=== PATIENT | male | born 1940 | race Asian ===

== ENCOUNTER 2019-10-09 07:06 | Inpatient (IN) | payer OTHER ==
[~2019-10-09] VITALS: Ht 154.9 cm; Wt 61.8 kg
[2019-10-09 07:16] LABS: EOSINOPHILS % (AUTO) 3.4 % (1.0-6.0); HEMOGLOBIN 13.4 g/dL (13.5-17.5); LYMPHOCYTES # (AUTO) 0.8 K/uL (1.0-4.8); LYMPHOCYTES % (AUTO) 13.2 % (22.0-44.0); MEAN CORPUSCULAR HEMOGLOBIN 32.7 pg (26.0-34.0); MEAN CORPUSCULAR HGB CONC 33.4 G/dL (31.0-37.0); MEAN CORPUSCULAR VOLUME 98 fL (80-100); MONOCYTES # (AUTO) 0.8 K/uL (0.1-1.0); MONOCYTES % (AUTO) 12.7 % (2.0-9.0); NEUTROPHILS # (AUTO) 4.2 K/uL (1.8-7.7); NEUTROPHILS % (AUTO) 69.7 % (40.0-70.0); RED BLOOD CELL COUNT(AUTO) 4.09 MIL/uL (4.50-5.90)
[2019-10-09 07:27] LABS: CALCIUM, TOTAL 8.8 mg/dL (8.8-10.5); CREATININE 1.79 mg/dL (0.60-1.30); POTASSIUM 4.5 mmol/L (3.5-5.1); PROTHROMBIN TIME 10.5 SEC (9.4-11.6)
[2019-10-09 07:30] LABS: PLATELET COUNT (AUTO) 98 K/uL (150-450)
[2019-10-09 07:33] LABS: BILIRUBIN,TOTAL 0.7 mg/dL (0.1-1.0); TOTAL PROTEIN, SERUM 6.6 g/dL (6.4-8.2)
[2019-10-09] MEDS ORDERED: CHOL100018 PO (07:54)
[2019-10-09] MEDS ORDERED: HYDR25TA84 PO (07:54)
[2019-10-09] MEDS ORDERED: DOXA1 PO (07:54)
[2019-10-09] MEDS ORDERED: INSLAN SQ (07:54)
[2019-10-09] MEDS ORDERED: ACAR50TA2 PO (07:54)
[2019-10-09] MEDS ORDERED: SITA50 PO (07:54)
[2019-10-09] MEDS ORDERED: SPIR25 PO (07:54)
[2019-10-09] MEDS ORDERED: LABE100T8 PO (07:54)
[2019-10-09] MEDS ORDERED: GLIP5 PO (07:54)
[2019-10-09] MEDS ORDERED: FLUT16H NASAL (07:54)
[2019-10-09] MEDS ORDERED: OLOP5DRO14 OU (07:54)
[2019-10-09] MEDS ORDERED: LOSA50TA64 PO (07:54)
[2019-10-09] MEDS ORDERED: ASPIRIN 81 MG CHEWABLE TABLET PO ONE (08:30)
[2019-10-09] MEDS ORDERED: ONDANSETRON HCL 4 MG/2 ML VIAL IVP PRN ×2 (08:45→16:30)
[2019-10-09] MEDS ORDERED: ACETAMINOPHEN 325 MG TABLET PO PRN ×2 (08:45→16:30)
[2019-10-09] MEDS ORDERED: MAGNESIUM HYDROXIDE SUSPENSION 30 ML UDCUP PO PRN (16:30)
[2019-10-09] MEDS ORDERED: BISACODYL 10 MG RECTAL RECTAL SUPPOSITORY PR PRN (16:30)
[2019-10-09] MEDS ORDERED: MORPHINE SULFATE 2 MG/ML SYRINGE IVP PRN (16:30)
[2019-10-09] MEDS ORDERED: ZOLPIDEM TARTRATE 5 MG TABLET PO PRN (16:30)
[2019-10-09] MEDS ORDERED: HYDROCODONE/ACETAMINOPHEN 5-325 MG TABLET PO PRN (16:30)
[2019-10-09 16:56] VITALS: BP 160/71
[2019-10-09] MEDS: GlipiZIDE 5 MG TABLET PO SCH (17:46)
[2019-10-09] MEDS: DOCUSATE SODIUM 100 MG CAPSULE PO SCH (20:03)
[2019-10-09 20:08] VITALS: BP 144/96
[2019-10-09] MEDS ORDERED: ATORVASTATIN CALCIUM 20 MG TABLET PO SCH (21:00)
[2019-10-10 00:16] VITALS: BP 158/76
[2019-10-10] MEDS: HEPARIN SODIUM,PORCINE 5,000 UNITS/ML VIAL SQ SCH ×3 (01:08→16:38)
[2019-10-10 04:24] VITALS: BP 150/99
[2019-10-10] MEDS: GlipiZIDE 5 MG TABLET PO SCH ×2 (06:26→16:38)
[2019-10-10 06:42] LABS: HEMOGLOBIN A1C 6.4 % (4.5-6.2)
[2019-10-10 07:02] LABS: CHOL/HDL RATIO 5.6 (4.2-7.3); THYROID STIMULATING HORMONE 0.3 uIU/mL (0.36-3.74)
[2019-10-10 07:26] VITALS: BP 148/67
[2019-10-10] MEDS: DOCUSATE SODIUM 100 MG CAPSULE PO SCH (08:50)
[2019-10-10] MEDS ORDERED: PANTOPRAZOLE SODIUM 40 MG DR TABLET PO SCH (09:00)
[2019-10-10] MEDS ORDERED: ASPIRIN 81 MG CHEWABLE TABLET PO SCH ×2 (09:00)
[2019-10-10] MEDS ORDERED: LOSARTAN POTASSIUM 25 MG TABLET PO SCH (09:00)
[2019-10-10] MEDS ORDERED: SPIRONOLACTONE 25 MG TABLET PO SCH (09:00)
[2019-10-10] MEDS ORDERED: SitaGLIPtin PHOSPHATE 50 MG TABLET PO SCH (09:00)
[2019-10-10] MEDS ORDERED: DEXTROSE 50%-WATER 25 GM/50 ML SYRINGE IVP PRN (09:00)
[2019-10-10] MEDS ORDERED: INSULIN LISPRO 100 UNITS/ML SQ PRN (09:00)
[2019-10-10] MEDS ORDERED: CHOLECALCIFEROL (VIT D3) 1,000 UNITS TABLET PO SCH (09:00)
[2019-10-10 09:46] LABS: FREE T4 (FREE THYROXINE) 1.34 ng/dL (0.76-1.46)
[2019-10-10 11:09] VITALS: BP 156/64
[2019-10-10] MEDS ORDERED: ASPI81 PO (18:58)
[2019-10-10] MEDS ORDERED: ATOR20TA86 PO (18:59)
[2019-10-10 20:54] LABS: GLUCOMETER DEV NAME(LOC) 5N.2; GLUCOSE,POINT OF CARE 224 MG/DL (70-110)
[2019-10-10 20:55] LABS: GLUCOMETER DEV NAME(LOC) 5N.2; GLUCOSE,POINT OF CARE 98 MG/DL (70-110)
== END 2019-10-10 19:30 | disposition short-term general hospital (02) | DRG 66 ==
LOC: EMS 07:07 → 5S 14:45
PROVIDERS: ADMIT Internal Medicine; ATTEND Internal Medicine
DX: I63.9 Cerebral infarction, unspecified (principal); E78.5 Hyperlipidemia, unspecified; N18.9 Chronic kidney disease, unspecified; E11.22 Type 2 diabetes mellitus with diabetic chronic kidney disease; I12.9 Hypertensive chronic kidney disease with stage 1 through stage 4 chronic kidney disease, or unspecified chronic kidney disease; E55.9 Vitamin D deficiency, unspecified; I65.21 Occlusion and stenosis of right carotid artery; I48.91 Unspecified atrial fibrillation
CPT/HCPCS: 70496; 83036; 84439; 84443; 93005; 93306; 93880; 99291; J1644